=== PATIENT | female | born 1940 | race American Indian/Alaskan Native ===

== ENCOUNTER 2018-03-05 09:58 | Day surgery (SDC) | payer MEDICARE ==
[2018-02-25 10:01] VITALS: BMI 28.1
[2018-03-05] MEDS ORDERED: Lidocaine 1% Inj (20ml) ONE (12:02)
[2018-03-05] MEDS ORDERED: Etomidate 20 mg/10ml Inj IV ONE (12:02)
[2018-03-05] MEDS ORDERED: Sodium Chloride 0.9% 1,000 ML IV SCH (12:30)
[2018-03-05 13:06] VITALS: O2SAT 99
[2018-03-05 17:05] VITALS: BP 138/78; PULSE 67; RESP 16; TEMP 98.4
== END 2018-03-05 14:33 | disposition home or self-care (01) ==
LOC: ENDO 09:58 → EDSEX 09:58 → MERGE 09:58 → ENDO 14:33
PROVIDERS: ATTEND Internal Medicine Gastroenterology
DX: K25.9 Gastric ulcer, unspecified as acute or chronic, without hemorrhage or perforation (principal); K29.50 Unspecified chronic gastritis without bleeding; K31.9 Disease of stomach and duodenum, unspecified; K44.9 Diaphragmatic hernia without obstruction or gangrene; E11.9 Type 2 diabetes mellitus without complications; I10 Essential (primary) hypertension
CPT/HCPCS: 43239; 88305; 88342; J7040 ×2

== ENCOUNTER 2019-02-13 10:33 | Inpatient (IN) | payer MEDICARE, OTHER ==
--- NOTE | 2019-02-13 10:56 | ED PDOC ---
Arrival/HPI - General Chief Complaint: Shortness Of Breath Time Seen by Provider: 02/13/19 10:38 - History of Present Illness Narrative History of Present Illness (Text): 02/13/19 10:55 Patient is a 78 y/o F, followed by Dr. Serrato, presenting with SOB since January 28. She saw her PMD who thought it was secondary to anemia. CT abd/pelvis on 05/14/18 was negative and endoscopy from 03/05/18 showed hiatal hernia, erosive gastropathy and h.pylori negative as performed by Ankit Candelaria. She reports no improvement of symptoms so she presented to ED today. Denies rectal bleeding, vaginal bleeding. Denies chest pain. 02/13/19 11:04 Past Medical History - Infectious Disease Hx of Infectious Diseases: None - Tetanus Immunization Tetanus Immunization: Unknown - Cardiac Hx Pacemaker: No - Neurological Hx Paralysis: No - HEENT Other/Comment: wears glasses - Endocrine/Metabolic Hx Diabetes Mellitus Type 2: Yes - Hematological/Oncological Hx Blood Transfusions: No Hx Blood Transfusion Reaction: No - Musculoskeletal/Rheumatological Hx Musculoskeletal Disorders: Yes - Psychiatric Hx Emotional Abuse: No Hx Physical Abuse: No Hx Substance Use: No - Anesthesia Hx Anesthesia Reactions: No Hx Malignant Hyperthermia: No - Suicidal Assessment Feels Threatened In Home Enviroment: No Family/Social History Family/Social History: No Known Family HX Smoking Status: Never Smoked Hx Alcohol Use: No Hx Substance Use: No Allergies/Home Meds Allergies/Adverse Reactions: Allergies No Known Allergies Allergy (Verified 02/13/19 10:37) Home Medications: Home Meds Medication Instructions Recorded Confirmed Pantoprazole [Protonix] 40 mg PO QAM 10/26/15 02/13/19 Telmisartan/Hydrochlorothiazid 1 tab PO QAM 10/26/15 02/13/19 [Telmisartan-Hydrochlorothiazide 12.5 mg-80 mg] Aspirin [Aspirin EC] 81 mg PO DAILY 04/18/16 02/13/19 Alprazolam [Xanax] 0.5 mg PO QID 10/19/16 02/13/19 Acetaminophen [Tylenol Extra 1 tab PO PRN PRN 02/25/18 02/13/19 Strength] Cholecalciferol (Vitamin D3) 5,000 unit PO DAILY 02/25/18 02/13/19 [Vitamin D3] Ferrous Sulfate [Feosol] 325 mg PO DAILY 02/25/18 02/13/19 Lubiprostone [Amitiza] 24 mcg PO DAILY 02/25/18 02/13/19 Propylene Glycol/Peg 400/Pf 1 drop OU TID 02/25/18 02/13/19 [Systane 0.3-0.4% Eye Drops] Rosuvastatin Calcium [Crestor] 5 mg PO DAILY 02/25/18 02/13/19 SITagliptin [Januvia] 75 mg PO DAILY 02/25/18 02/13/19 Travoprost [Travatan Z] 1 drop OU TID 02/25/18 02/13/19 Review of Systems - Review of Systems Constitutional: Fatigue Eyes: absent: Vision Changes ENT: absent: Hearing Changes Respiratory: SOB. absent: Cough, Sputum, Wheezing Cardiovascular: AHN. absent: Chest Pain, Palpitations, Edema, Calf Pain, Syncope Gastrointestinal: Abdominal Pain (chronic epigastric pain). absent: Constipation, Diarrhea, Nausea, Vomiting, Hematochezia, Hematemesis Genitourinary Female: absent: Hematuria Skin: absent: Rash, Pruritis Neurological: absent: Headache, Dizziness, Focal Weakness, Gait Changes, Speech Changes Physical Exam Vital Signs Temp Pulse Resp BP Pulse Ox 02/13/19 10:43 97.8 F 101 H 20 156/90 H 100 Temperature: Afebrile Blood Pressure: Hypertensive Pulse: Tachycardic Respiratory Rate: Normal Appearance: Positive for: Well-Appearing, Non-Toxic, Comfortable Pain Distress: None Mental Status: Positive for: Alert and Oriented X 3 - Systems Exam Head: Present: Atraumatic, Normocephalic Pupils: Present: PERRL Extroacular Muscles: Present: EOMI Conjunctiva: Present: Normal Mouth: Present: Moist Mucous Membranes Neck: Present: Normal Range of Motion Respiratory/Chest: Present: Clear to Auscultation, Good Air Exchange. No: Respiratory Distress, Accessory Muscle Use Cardiovascular: Present: Regular Rate and Rhythm, Normal S1, S2. No: Murmurs Abdomen: No: Tenderness, Distention Upper Extremity: Present: Normal Inspection Lower Extremity: Present: Normal Inspection. No: Edema, CALF TENDERNESS Neurological: Present: GCS=15, CN II-XII Intact Psychiatric: Present: Alert, Oriented x 3 Medical Decision Making ED Course and Treatment: 02/13/19 11:04 Patient is presenting with fatigue and SOB. EKG shows NSR at 100bpm with LVH. No acute ST changes. 02/13/19 11:40 Dr. Serrato at bedside. Accepts patient for admission. Reports that she has referrred patient to GI and hematology and needs admission for further evaluation and likely cardiac evaluation for chronic SOB and fatigue and weight loss 02/13/19 12:43 Chest cxay No active pulmonary disease. No significant interval change compared to the prior examination(s). - RAD Interpretation Radiology Orders: 02/13/19 10:51 CHEST PORTABLE [RAD] Stat Disposition/Present on Arrival - Present on Arrival Any Indicators Present on Arrival: No History of DVT/PE: No History of Uncontrolled Diabetes: Yes Urinary Catheter: No History of Decub. Ulcer: No History Surgical Site Infection Following: None - Disposition Have Diagnosis and Disposition been Completed?: Yes Diagnosis: Hypokalemia, Shortness of breath, Fatigue, Anemia Disposition: HOSPITALIZED Disposition Time: 11:54 Patient Plan: Admission Patient Problems: Current Active Problems Problem Status Onset Hypokalemia Acute Shortness of breath Acute Fatigue Acute Condition: FAIR
[2019-02-13 11:27] LABS: BASO # 0.02 K/mm3 (0.0-2.0); BASO % 0.4 % (0.0-3.0); EOS # 0.1 (0.0-0.7); EOS % 1.1 % (1.5-5.0); LYMPH # 0.7 (1.2-3.4); LYMPH % 15.4 % (22.0-35.0); MEAN CELL VOLUME 93.2 fl (80.0-105.0); MEAN CORPUSCULAR HEMOGLOBIN 29.8 pg (25.0-35.0); MEAN PLATELET VOLUME 8.5 fl (7.0-11.0); MONO # 0.2 (0.1-0.6); MONO % 5.2 % (1.0-6.0); RBC 3.69 10^6/uL (3.5-6.1); RED CELL DISTRIBUTION WIDTH 13.3 % (11.5-14.5); WHITE BLOOD COUNT 4.6 10^3/uL (4.5-11.0)
[2019-02-13 11:35] LABS: INR 1.25; PARTIAL THROMBOPLASTIN TIME 28.4 Seconds (26.9-38.3); PROTHROMBIN TIME 14.1 SECONDS (9.4-12.5)
[2019-02-13 11:37] LABS: ALB/GLOB RATIO 1.3 (1.1-1.8); ALBUMIN 4.3 g/dL (3.0-4.8); ALT/SGPT 9 U/L (7-56); AST/SGOT 24 U/L (14-36); BLOOD UREA NITROGEN 18 mg/dL (7-21); CALCIUM 9.5 mg/dL (8.4-10.5); GFR NON-AFRICAN AMERICAN 44
[2019-02-13 11:48] LABS: TROPONIN I < 0.01 ng/mL
[2019-02-13] MEDS ORDERED: Potassium Chloride 20 mEq ER Tab PO STA (11:56)
--- NOTE | 2019-02-13 12:42 | RAD ---
Date of service: 02/13/2019 HISTORY: Shortness of breath. COMPARISON: 09/30/2013. FINDINGS: LUNGS: No active pulmonary disease. PLEURA: No significant pleural effusion identified, no pneumothorax apparent. CARDIOVASCULAR: No atherosclerotic calcification present Normal. OSSEOUS STRUCTURES: No significant abnormalities. VISUALIZED UPPER ABDOMEN: Normal. OTHER FINDINGS: None. IMPRESSION: No active pulmonary disease. No significant interval change compared to the prior examination(s). Concordant results with the preliminary interpretation rendered by the emergency department physician procedure.
[2019-02-13] MEDS ORDERED: Barium Sulfate Susp 2.1% w/v, 2.0% w/w 450 mL Bottle PO ONE (12:49)
[2019-02-13] MEDS ORDERED: Iohexol 240 (50 ml) ONE (12:51)
[2019-02-13] MEDS ORDERED: Megestrol Acetate 40 mg/ml Cup PO SCH (13:15)
[2019-02-13] MEDS ORDERED: Iohexol 350 MG/100 ML VIAL ONE (13:35)
--- NOTE | 2019-02-13 14:54 | HP ---
DATE OF EXAM: 02/13/2019 HISTORY OF PRESENT ILLNESS: The patient is 78 years old black female who came to emergency room because of increasing shortness of breath, decreased appetite, unexplained weight loss. She states she feels cold all the time. She has initial workup done in office. She was only found to be little borderline anemic with hemoglobin of 10.4. Her last stress test was done 3 years ago. Denies any chest pain; however she complains of shortness of breath. She does not have any fever or chills. No history of nausea or vomiting; however, she has poor appetite and she pushed herself to eat. PAST MEDICAL HISTORY: Significant for: 1. Non-insulin dependent diabetes. 2. Hypertension. 3. Anxiety disorder. 4. She also has degenerative disc disease, but not on any narcotics. She has endoscopy done in 02/2018, and she was found to have erosive gastropathy and hiatal hernia. ALLERGIES: SHE IS NOT ALLERGIC TO ANY MEDICATION. MEDICATIONS AT HOME 1. She is on Periactin. 2. She is on Travatan. 3. Telmisartan 80 mg daily. 4. Januvia 75 mg daily. 5. Crestor 5 mg daily. 6. Protonix 40 mg daily. 7. Amitiza 24 mcg daily. 8. Ferrous sulfate 325 daily. 9. Aspirin 81 mg daily. 10. Xanax 0.5 q.i.d. SOCIAL HISTORY: She is , lives with her . Denies smoking or drinking. PHYSICAL EXAMINATION GENERAL: She looks weak. She looks frail. She has definitely lost weight. VITAL SIGNS: She is afebrile. Pulse 101, respirations 20, and blood pressure 156/90. LUNGS: Bilateral fair airflow. No rhonchi or crackles. HEART: S1 and S2, audible. ABDOMEN: Soft and nontender. No rebound. No guarding. NEUROLOGIC: The patient is awake and alert, able to communicate. LABORATORY DATA: She has CT of the abdomen and pelvis done that seems to be unremarkable. MRI of the brain shows only neurodegenerative disease. She had PET scan done in 2017 that was also unremarkable. ASSESSMENT 1. Exertional dyspnea. 2. Weight loss. 3. Failure to thrive. 4. History of hypertension. 5. Non-insulin dependent diabetes. PLAN: We will monitor her cardiac status. I will order echocardiogram, Dr. Zavala for consult, Dr. Valentin for consult. I will order for CT scan of the abdomen and pelvis and chest, and we will resume her medication. We will follow up her blood sugar. Emily Serrato MD
[2019-02-13] MEDS ORDERED: Enoxaparin 80 mg Syringe SC STA (16:02)
--- NOTE | 2019-02-13 16:11 | CT ---
Date of service: 02/13/2019 PROCEDURE: CT Chest, Abdomen and Pelvis with intravenous contrast HISTORY: SOB/WT LOSS COMPARISON: 05/14/2018. CT abdomen and pelvis. TECHNIQUE: IV dose administered: 100 cc Omnipaque 350 Radiation dose: Total exam DLP = 614.58 mGy-cm. This CT exam was performed using one or more of the following dose reduction techniques: Automated exposure control, adjustment of the mA and/or kV according to patient size, and/or use of iterative reconstruction technique. FINDINGS: CT CHEST WITH CONTRAST: LUNGS: Clear. No nodule, mass or consolidation. MEDIASTINUM: Central pulmonary embolism on the right. Disease seen in the distal right main pulmonary artery. More peripheral disease in the left lower lobe pulmonary artery extending into the segmental branches identified. No CT criteria of heart strain. Unremarkable. Normal caliber aorta and pulmonary arterial trunk. No aortic dissection. Normal size heart. LYMPH NODES: Unremarkable. PLEURA: Unremarkable. No pneumothorax. No pleural fluid. BONES: Unremarkable. OTHER FINDINGS: None. CT ABDOMEN AND PELVIS: LIVER: Hepatic steatosis. No focal masses. No intrahepatic bile duct dilatation or perihepatic ascites. GALLBLADDER AND BILE DUCTS: Status post cholecystectomy. No abnormality is seen in the gallbladder fossa. PANCREAS: Unremarkable. No gross lesion or ductal dilatation. SPLEEN: Unremarkable. ADRENALS: Unremarkable. No mass. KIDNEYS AND URETERS: Unremarkable. No hydronephrosis. No solid mass. VASCULATURE: No aortic atherosclerotic calcification or mural plaque present. Unremarkable. No aortic aneurysm. BOWEL: Constipation without fecal impaction or obstruction. Diverticulosis without an acute inflammatory component or other associated pathologic process. APPENDIX: Normal appendix. PERITONEUM: Unremarkable. No free fluid. No free air. LYMPH NODES: Unremarkable. No enlarged lymph nodes. BLADDER: Unremarkable. REPRODUCTIVE: Unremarkable. BONES: No acute fracture. OTHER FINDINGS: None. IMPRESSION: Proximal pulmonary embolism bilaterally. This includes distal right main pulmonary artery. Considerable thrombus noted at the origin of the left lower lobe pulmonary artery. Additional benign and/or incidental findings described above. Communication of critical results: I discussed the findings directly with the attending physician in the emergency department at 15:59.
[2019-02-13 16:23] VITALS: BMI 26.4
--- NOTE | 2019-02-13 17:15 | CARD ---
APPROVED REPORT Date of service: 02/13/2019 EKG Measurement Heart [id number] <Conclusion> Sinus rhythm with fusion complexes Minimal voltage criteria for LVH, may be normal variant Borderline ECG
[2019-02-13] MEDS ORDERED: Pneumococcal 23-Valent Vaccine IM ONE (19:19)
[2019-02-13] MEDS: Insulin Lispro (humaLOG) MEDIUM Coverage SC SCH ×2 (19:29→22:50)
[2019-02-13] MEDS: Levalbuterol 1.25 MG/3 ML Inhal Soln UD IH SCH ×2 (20:00→20:26)
[2019-02-14] MEDS: Levalbuterol 1.25 MG/3 ML Inhal Soln UD IH SCH ×4 (01:58→19:35)
--- NOTE | 2019-02-14 08:33 | CP.PCM.PN ---
Subjective - Date & Time of Evaluation Date of Evaluation: 02/14/19 Time of Evaluation: 08:29 - Subjective Subjective: It was requested to co-sign jai ma order. Patient was seen at bed side. Has no complaints. Pertinent medical record was reviewed. This 78year old male was admitted Has PMH of increasing sob, decreasing appetite, unexplained weight loss. Has PMH of HTN, anxiety, NIDDM, DJD, erosive gastropathy, hernia. Objective - Vital Signs/Intake and Output Vital Signs (last 24 hours): Temp Pulse Resp BP Pulse Ox 98.6 F 74 19 139/75 99 02/14/19 05:51 02/14/19 05:51 02/14/19 05:51 02/14/19 05:51 02/14/19 05:51 Intake and Output: 02/14/19 02/14/19 06:59 18:59 Intake Total 240 Balance 240 - Medications Medications: Current Medications Alprazolam (Xanax) 0.25 mg PO QID PRN; Protocol PRN Reason: Anxiety Last Admin: 02/13/19 20:26 Dose: 0.25 mg Aspirin (Ecotrin) 81 mg PO DAILY [facility] Enoxaparin Sodium (Lovenox) 70 mg SC BID [facility]; Protocol Insulin Human Lispro (Humalog Med) 0 units SC ACHS [facility]; Protocol Last Admin: 02/13/19 22:50 Dose: Not Given Levalbuterol HCl (Xopenex) 1.25 mg IH [id number] [facility] Last Admin: 02/14/19 07:34 Dose: 1.25 mg Travoprost [Travatan Z] 1 Drop (Home Med ) 1 drop OU TID [facility] Pantoprazole Sodium (Protonix Ec Tab) 40 mg PO QAM [facility] Sitagliptin Phosphate (Januvia) 25 mg PO DAILY [facility] - Labs Labs: 02/13/19 10:50 02/13/19 10:50 PT 14.1 SECONDS (9.4-12.5) H 02/13/19 10:50 INR 1.25 02/13/19 10:50 APTT 28.4 Seconds (26.9-38.3) 02/13/19 10:50 Assessment and Plan - Assessment and Plan (Free Text) Assessment: Hypokalemia. Borderline anemia. HTN. Anxiety. NIDDM. DJD Erosive gastropathy. Hernia. Plan: Tylenol 650 mg PO X 1. Benadryl 25 mg PO x 1. Continue present management.
[2019-02-14] MEDS: Insulin Lispro (humaLOG) MEDIUM Coverage SC SCH ×4 (09:54→22:20)
[2019-02-14] MEDS: Pantoprazole 40 mg EC Tab PO SCH (10:13)
[2019-02-14] MEDS: Enoxaparin 80 mg Syringe SC SCH ×3 (10:13→19:47)
[2019-02-14] MEDS: TRAVOPROST OU SCH ×3 (10:14→19:41)
--- NOTE | 2019-02-14 12:23 | US ---
HISTORY: Leg pain and swelling. Evaluate for DVT PHYSICIAN(S): Elfego Chanel MD. TECHNIQUE: Duplex sonography and color-flow Doppler with graded compression were used to evaluate the deep venous systems of both lower extremities. FINDINGS: Acute on chronic DVT is noted in the right femoral vein. The right popliteal vein is partially recannulized. The right common femoral vein is patent and compressible. Primarily chronic occlusive changes are noted throughout the left femoral vein. The left popliteal vein and left common femoral vein are patent and compressible IMPRESSION: Acute on chronic deep VT in the right femoral vein and right popliteal Primarily chronic changes throughout the left femoral vein
--- NOTE | 2019-02-14 13:01 | CON ---
DATE OF CONSULTATION: 02/14/2019 REQUESTING PHYSICIAN: Dr. Serrato. REASON FOR CONSULTATION: Dyspnea. HISTORY: This is a 78-year-old woman, known to us from outpatient followup, who presented to the emergency room with worsening dyspnea for the past several days. She also states that her appetite has been reduced, and she has had weight loss issues for a number of months. Workup thus far has been unremarkable. As part of the workup, the CT of the chest, abdomen, and pelvis was performed, and she was found to have evidence of pulmonary emboli. She has been placed on Lovenox. She denies any prolonged immobilization. Her last long car trip was in September when she traveled to [place]. She states that she is fairly active at home. She denies any chest pain. Stress test several years ago was unremarkable. She does have a history of hypertension and diabetes. PAST MEDICAL HISTORY: Past medical history is notable for the problems mentioned above. She does have some lumbar disk disease as well as a history of anxiety and mild chronic anemia. MEDICATIONS: Her current medications include Ecotrin, Januvia, Lovenox, Protonix, Travatan eye drops, Xanax, and Xopenex. ALLERGIES: NONE. SOCIAL HISTORY: She does not smoke or drink. She is and lives at home with her . She states that she is fairly active. FAMILY HISTORY: Both parents are from age-related illnesses. No family history of premature heart disease. REVIEW OF SYSTEMS: A 12-point review of systems is notable for some intermittent joint pain. She denies any nausea or vomiting. Review of systems is otherwise unremarkable. PHYSICAL EXAMINATION: GENERAL: She is an elderly woman, who appears comfortable at rest. VITAL SIGNS: Her blood pressure is 140/76 with a pulse of 74 and sinus, respirations are 14. She is afebrile. HEENT: Normocephalic, atraumatic. NECK: Supple. No JVD noted. CHEST: A few scattered rhonchi heard. No rales noted. HEART: PMI displaced laterally with soft systolic murmur at the lower left sternal border. ABDOMEN: Soft, nontender with normoactive bowel sounds. EXTREMITIES: No clubbing, cyanosis, or edema. SKIN: Warm and dry. PSYCHIATRIC: Normal mood and affect. NEUROLOGIC: Alert and oriented x3. No gross motor or sensory deficits notable. DIAGNOSTIC DATA: White count 4.6, hemoglobin and hematocrit are 11 and 34.4 with a platelet count of 165,000. PT/PTT of 14.1 and 28.4, potassium 3.4, and this has been replaced. BUN and creatinine are 18 and 1.2, glucose is 133. Troponin is negative. Chest x-ray reveals normal cardiac silhouette with clear lung garcia. Electrocardiogram reveals sinus rhythm with voltage criteria for LVH, nonspecific ST-T abnormalities. CT of the chest, abdomen, and pelvis is notable for bilateral proximal pulmonary emboli. IMPRESSION: 1. Bilateral pulmonary emboli, source and etiology uncertain. Given her weight loss and evidence of hypercoagulability, a workup for occult malignancy should be considered. Anticoagulant therapy should continue as well. 2. Rest of the problems as noted. RECOMMENDATIONS: 1. An echocardiogram will be obtained to evaluate her right heart function and screen for evidence of acute pulmonary hypertension. 2. Lower extremity venous duplex scans are advised. Hypercoagulable workup has been ordered. Thank you for this consultation. We will be happy to follow along through hospital course as needed and make further recommendations as appropriate. Niranjan Zavala MD MTDD
--- NOTE | 2019-02-14 13:54 | CARD ---
APPROVED REPORT Date of service: 02/14/2019 EXAM: Two-dimensional and M-mode echocardiogram with Doppler and color Doppler. INDICATION Dyspnea 2D DIMENSIONS Left Atrium (2D)4.0 (1.6-4.0cm)IVSd1.0 (0.7-1.1cm) LVDd4.2 (3.9-5.9cm)PWd1.0 (0.7-1.1cm) LVDs2.8 (2.5-4.0cm)FS (%) 33.0 % LVEF (%)61.9 (>50%) M-Mode DIMENSIONS Aortic Root3.10 (2.2-3.7cm)Aortic Cusp Exc.1.60 (1.5-2.0cm) Aortic Valve AoV Peak Illexxty672.0cm/Dot Peak GR.10mmHg Mitral Valve MV E Juxhjpur26.2cm/sMV A Oapfjhgc949.0cm/sE/A ratio0.6 TDI Lateral E' Peak V11.90cm/sMedial E' Peak V5.75cm/sE/Lateral E'5.1 E/Medial E'10.6 Pulmonary Valve PV Peak Ylbkvmvl73.1cm/sPV Peak Grad.2mmHg Tricuspid Valve TR Peak [id number]/sRAP [id number] Peak Gr.60mmHg [id number] LEFT VENTRICLE The left ventricle is normal size. There is normal left ventricular wall thickness. The left ventricular function is normal. The left ventricular ejection fraction is within the normal range. There is normal LV segmental wall motion. RIGHT VENTRICLE The right ventricle is normal size. The right ventricular systolic function is normal. ATRIA The left atrium is mildly dilated. The right atrium is mildly dilated. The interatrial septum bows toward left atrium consistent with elevated right atrial pressure. AORTIC VALVE The aortic valve is normal in structure. No aortic regurgitation is present. There is no aortic valvular stenosis. MITRAL VALVE The mitral valve is mildly thickened. Mitral regurgitation is mild. TRICUSPID VALVE The tricuspid valve is normal in structure. There is severe tricuspid regurgitation. There is moderate to severe pulmonary hypertension. PULMONIC VALVE The pulmonary valve is normal in structure. There is mild pulmonic valvular regurgitation. GREAT VESSELS The aortic root is normal in size. The IVC is normal in size and collapses >50% with inspiration. PERICARDIAL EFFUSION There is no pleural effusion. There is no pericardial effusion. <Conclusion> Mild biatrial enlargement. Normal LV size and systolic function. Mild mitral regurgitation. Severe tricuspid regurgitation. Mild pulmonic insufficiency. Moderate to severe pulmonary hypertension.
--- NOTE | 2019-02-14 14:13 | CP.PCM.CON ---
<Lisseth Allan - Last Filed: 02/14/19 14:02> History of Present Illness - History of Present Illness History of Present Illness: Gastroenterology Fellow/PGY6 Consult Note 78 year old female with PMH of PUD 2016, Diabetes, HTN, DJD, and Anxiety presenting with shortness of breath. Patient describes progressive shortness of breath with exertion since 01/23/19. She noticed symptoms worsened to shortness of breath while at rest in the last week leading to PCP evaluation and presentation to ER. Associated loss of appetite and unintentional weight loss which is chronic over the last five years for which patient has been evaluated for without confirmation of underlying pathology with negative prior CT pancreas 02/2017 and PET scan 09/2017 . Denies nausea, vomiting, heartburn, acid reflux, abdominal pain, diarrhea, constipation, melena, hematochezia, recent travel, or sick contacts. Prior EGD 03/2016 showed two superficial prepyloric antral ulcers with confirmed healing on EGD 02/2018 showing erosive H. pylori negative gastritis. Prior colonoscopy 10/2015 showed diverticulosis and internal hemorrhoids with good bowel prep. Family History- denies stomach cancer, colon cancer Social History- denies tobacco, alcohol, illicit drug use Surgical History- cholecystectomy Review of Systems - Review of Systems Review of Systems: 12-point review of systems negative except for as above Past Patient History - Infectious Disease Hx of Infectious Diseases: None - Tetanus Immunizations Tetanus Immunization: Unknown - Past Social History Smoking Status: Never Smoked - CARDIAC Hx Cardiac Disorders: Yes (CAD, Mild [place] 2008) Hx Hypertension: Yes - PULMONARY Hx Respiratory Disorders: No - NEUROLOGICAL Hx Neurological Disorder: Yes (memory loss) - HEENT Hx HEENT Problems: Yes Hx Cataracts: Yes (r eye) Other/Comment: wears glasses - RENAL Hx Chronic Kidney Disease: No - ENDOCRINE/METABOLIC Hx Diabetes Mellitus Type 2: Yes - HEMATOLOGICAL/ONCOLOGICAL Hx Blood Disorders: Yes Hx Anemia: Yes - INTEGUMENTARY Hx Dermatological Problems: No - MUSCULOSKELETAL/RHEUMATOLOGICAL Hx Arthritis: Yes - GASTROINTESTINAL Hx Gastrointestinal Disorders: Yes Hx Gastroesophageal Reflux: Yes Other/Comment: hiatal hernia, gastropharesis - GENITOURINARY/GYNECOLOGICAL Hx Genitourinary Disorders: Yes (mammo 07/15/18 neg) Hx Incontinence: Yes (dribbling) - PSYCHIATRIC Hx Substance Use: No - SURGICAL HISTORY Hx Surgeries: Yes Hx Coronary Stent: Yes - ANESTHESIA Hx Anesthesia Reactions: No Hx Malignant Hyperthermia: No Meds Allergies/Adverse Reactions: Allergies Allergy/AdvReac Type Severity Reaction Status Date / Time No Known Allergies Allergy Verified 02/13/19 10:37 - Medications Medications: Current Medications Alprazolam (Xanax) 0.25 mg PO QID PRN; Protocol PRN Reason: Anxiety Last Admin: 02/13/19 20:26 Dose: 0.25 mg Aspirin (Ecotrin) 81 mg PO DAILY [facility] Last Admin: 02/14/19 10:13 Dose: 81 mg Cyproheptadine HCl (Periactin) 2 mg PO TID [facility] Enoxaparin Sodium (Lovenox) 70 mg SC BID [facility]; Protocol Last Admin: 02/14/19 10:13 Dose: 70 mg Insulin Human Lispro (Humalog Med) 0 units SC ACHS [facility]; Protocol Last Admin: 02/14/19 12:34 Dose: Not Given Levalbuterol HCl (Xopenex) 1.25 mg IH [id number] [facility] Last Admin: 02/14/19 12:59 Dose: Not Given Mirtazapine (Remeron) 15 mg PO HS [facility] Travoprost [Travatan Z] 1 Drop (Home Med ) 1 drop OU TID [facility] Last Admin: 02/14/19 10:14 Dose: Not Given Pantoprazole Sodium (Protonix Ec Tab) 40 mg PO QAM [facility] Last Admin: 02/14/19 10:13 Dose: 40 mg Paroxetine HCl (Paxil) 5 mg PO DAILY [facility] Physical Exam - Constitutional Appears: Non-toxic, No Acute Distress - Head Exam Head Exam: ATRAUMATIC, NORMOCEPHALIC - Eye Exam Eye Exam: EOMI, PERRL. absent: Scleral icterus Pupil Exam: PERRL. absent: Miosis, Mydriatic - ENT Exam ENT Exam: Mucous Membranes Moist, Normal Oropharynx - Neck Exam Neck exam: Positive for: Full Rom, Normal Inspection - Respiratory Exam Respiratory Exam: Clear to Auscultation Bilateral. absent: Rales, Rhonchi, Wheezes - Cardiovascular Exam Cardiovascular Exam: RRR, +S1, +S2. absent: Gallop, Rubs - GI/Abdominal Exam GI & Abdominal Exam: Normal Bowel Sounds, Soft. absent: Distended, Firm, Guarding, Organomegaly, Rebound, Rigid, Tenderness - Extremities Exam Extremities exam: Positive for: normal inspection - Neurological Exam Neurological exam: Alert - Psychiatric Exam Psychiatric exam: Normal Affect, Normal Mood - Skin Skin Exam: Dry, Intact, Normal Color, Warm Results - Vital Signs Recent Vital Signs: Last Vital Signs Temp 98.6 F 02/14/19 05:51 Pulse 74 02/14/19 05:51 Resp 19 02/14/19 05:51 BP 139/75 02/14/19 05:51 Pulse Ox 99 02/14/19 11:00 - Labs Result Diagrams: 02/13/19 10:50 02/13/19 10:50 Labs: Laboratory Results - last 24 hr 02/13/19 02/14/19 19:28 06:30 POC Glucose (mg/dL) 91 Homocysteine 2.1 L Assessment & Plan - Assessment and Plan (Free Text) Assessment: 78 year old female with PMH of PUD 2015, Diabetes, HTN, DJD, and Anxiety presenting with shortness of breath. Patient describes progressive shortness of breath since 01/23/19. GI consultation for weight loss. Prior EGD 03/2016 showed two superficial prepyloric antral ulcers with confirmed healing on EGD 02/2018 showing erosive H. pylori negative gastritis. Prior colonoscopy 10/2015 showed diverticulosis and internal hemorrhoids with good bowel prep. Plan: -confirmed pulmonary embolism -on full dose lovenox -CT C/A/P showed no concern for mass lesion or pathology -consider psychogenic source as potential cause of food aversion with weight loss -consider pyschiatry evaluation for possible depression and early dementia as source of loss of appetite -prior PET 09/2017- no underlying pathology -prior CT pancreas 02/2017 -will follow clinical course <Ankit Valentin V - Last Filed: 02/14/19 21:39> Meds - Medications Medications: Current Medications Alprazolam (Xanax) 0.25 mg PO QID PRN; Protocol PRN Reason: Anxiety Last Admin: 02/13/19 20:26 Dose: 0.25 mg Aspirin (Ecotrin) 81 mg PO DAILY [facility] Last Admin: 02/14/19 10:13 Dose: 81 mg Cyproheptadine HCl (Periactin) 2 mg PO TID [facility] Last Admin: 02/14/19 19:45 Dose: 2 mg Enoxaparin Sodium (Lovenox) 70 mg SC BID [facility]; Protocol Last Admin: 02/14/19 19:47 Dose: Not Given Insulin Human Lispro (Humalog Med) 0 units SC ACHS [facility]; Protocol Last Admin: 02/14/19 19:46 Dose: Not Given Levalbuterol HCl (Xopenex) 1.25 mg IH [id number] [facility] Last Admin: 02/14/19 19:35 Dose: 1.25 mg Mirtazapine (Remeron) 15 mg PO HS [facility] Travoprost [Travatan Z] 1 Drop (Home Med ) 1 drop OU TID [facility] Last Admin: 02/14/19 19:41 Dose: Not Given Pantoprazole Sodium (Protonix Ec Tab) 40 mg PO QAM [facility] Last Admin: 02/14/19 10:13 Dose: 40 mg Paroxetine HCl (Paxil) 5 mg PO DAILY [facility] Last Admin: 02/14/19 15:02 Dose: 5 mg Warfarin Sodium (Coumadin) 10 mg PO 1800 [facility]; Protocol Last Admin: 02/14/19 19:45 Dose: 10 mg Results - Vital Signs Recent Vital Signs: Last Vital Signs Temp 98.6 F 02/14/19 05:51 Pulse 78 02/14/19 18:00 Resp 19 02/14/19 05:51 BP 139/75 02/14/19 05:51 Pulse Ox 99 02/14/19 11:00 - Labs Result Diagrams: 02/13/19 10:50 02/13/19 10:50 Labs: Laboratory Results - last 24 hr 02/14/19 02/14/19 06:00 06:30 Homocysteine 2.1 L Rheumatoid Arth Interp Negative SOUMYA 6 Profile Negative Attending/Attestation - Attestation I have personally seen and examined this patient.: Yes I have fully participated in the care of the patient.: Yes I have reviewed all pertinent clinical information: Yes Notes (Text): This patient was seen and evaluated here earlier Along with the GI fellow. This is an addendum to the consultation report dictated by the fellow. Discussed with the Dr. Fenton earlier. Previous work-up was extensive to evaluate the patient's weight loss and p.o. intake. At one time patient had a significant weight loss but patient gradually improved with weight when he started eating. Multiple work-up done including the CAT scans EGDs and colonoscopies. Patient did even have a PET scan done before. Patient has a history of dementia and a depression. Part of the p.o. intake low could be due to psychogenic rather than GI etiology. However patient does have a history of gastric erosions history of NSAID use in the past history of intestinal metaplasia last EGD was close to year ago. Patient is now admitted with the PE. Continue the anticoagulation endoscopy evaluation at this present time carries a high risk. Would empirically continue the PPI. 02/14/19 21:35
--- NOTE | 2019-02-14 14:17 | PN ---
DATE: 02/14/2019 SUBJECTIVE: The patient is 78 years old, seen and examined. She states she feels little better, less shortness of breath, still complains of decreased appetite. No nausea or vomiting. No diarrhea. PHYSICAL EXAMINATION VITAL SIGNS: She is afebrile. Pulse 74, respirations 19 and blood pressure 139/75. LUNGS: Bilateral fair airflow. No rhonchi or crackles. HEART: S1 and S2, audible. ABDOMEN: Soft and nontender. No rebound. No guarding. NEUROLOGIC: The patient is awake and alert, able to communicate, ambulatory. LABORATORY DATA: Homocysteine is 2.1. She has CT of the abdomen and pelvis done. CT scan shows bilateral pulmonary embolism. Bilateral leg Doppler is pending. ASSESSMENT 1. Exertional dyspnea, probably secondary to pulmonary embolism. Echocardiogram is pending. 2. History of hypertension. 3. Non-insulin dependent diabetes. 4. History of weight loss, status post endoscopy in 02/2018 in which she was found to have mild chronic gastritis with focal . 5. Anxiety disorder. PLAN: We will keep the patient on Lovenox and we will bridge with Coumadin, start her on Remeron. She is complaining of decreased appetite and add small dose of cyproheptadine. We will monitor on telemetry. Discuss with Dr. Lim. Coagulopathy workup is in progress. Emily Serrato MD
--- NOTE | 2019-02-14 16:27 | HP ---
DATE OF EXAM: 02/14/[address] Serrato. HISTORY OF PRESENT ILLNESS: Ms. Grimes is a 78-year-old female known to me from office. She presented to the ED with increased shortness of breath. CT chest with PE protocol showed bilateral pulmonary embolism in the proximal part of the pulmonary artery. She was started on Lovenox yesterday. She also has a history of weight loss and extreme fatigue for past few years. She was evaluated in past fully to rule out occult malignancy. She had a PET scan done in 2016, which was unremarkable. CAT scan of abdomen and pelvis was done in 03/2018 for evaluation of loss of appetite; it was unremarkable. She had EGD colonoscopy done by Dr. Valentin also for the same reason. CT of abdomen and pelvis done during this admission is unremarkable. No chest pain. Also, has history of diabetes mellitus, controlled with current medication. PAST MEDICAL HISTORY: Weight loss, fatigue, and diabetes mellitus. PAST SURGICAL HISTORY: None. ALLERGIES: NO KNOWN DRUG ALLERGIES. PERSONAL HISTORY: Never smoked. No history of alcohol abuse. FAMILY HISTORY: Noncontributory. HOME MEDICATIONS: Januvia, Crestor, Amitiza, ferrous sulfate, Tylenol, Xanax, hydrochlorothiazide and Protonix. REVIEW OF SYSTEMS: As per HPI. Rest of 12-point review of systems reviewed negative. PHYSICAL EXAMINATION: GENERAL: Comfortable in bed; in no acute distress. VITAL SIGNS: Temperature 97.8, heart rate 100 per minute, respiratory rate 20 per minute, blood pressure 150/80, and pulse ox is 100% on oxygen by nasal cannula. HEENT: Pallor positive. NECK: No lymphadenopathy. CHEST: Air entry present equal bilaterally. No added sounds. CARDIOVASCULAR: S1 and S2 normal. No murmur, rub, or gallop. ABDOMEN: Soft and nontender. No hepatosplenomegaly. EXTREMITIES: No edema. CENTRAL NERVOUS SYSTEM: Alert and oriented x3. No focal, sensory, or motor deficit. LABORATORY DATA: White count 4.6, hemoglobin 11, hematocrit 34.4, and platelet 165. Sodium 142, potassium 3.2, BUN 18, and creatinine 1.2. ASSESSMENT: 1. New onset of pulmonary embolism, unprovoked. 2. Chronic fatigue. 3. Diabetes mellitus type 2. PLAN: 1. Currently on Lovenox 1 mg per kilo b.i.d. We will continue Lovenox with Coumadin; discuss with the patient and the son choice of oral anticoagulation. Coumadin is the safest and easily reversible. She will need lifelong Coumadin because of unprovoked DVT. Thrombophilia workup ordered, results pending. We will start Coumadin 24 hours after starting Lovenox, which will be 10 mg p.o. daily and discussed with Dr. Serrato regarding the anticoagulation management. 2. Borderline B12 deficiency; currently B12 level normal. 3. Chronic fatigue, weight loss. Weight has been stable for past one year. Workup for occult malignancy has been negative, done in 2017 and 2018. 4. GI consultation, Dr. Valentin requested for weight loss. Thank you Dr. Serrato for allowing us to participate in Ms. Grimes's care. Elena Lim MD
[2019-02-15] MEDS: Levalbuterol 1.25 MG/3 ML Inhal Soln UD IH SCH ×4 (02:03→21:11)
[2019-02-15] MEDS: Insulin Lispro (humaLOG) MEDIUM Coverage SC SCH ×4 (08:07→22:05)
[2019-02-15 09:41] LABS: INR 1.2; PROTHROMBIN TIME 13.6 SECONDS (9.4-12.5)
[2019-02-15] MEDS: Enoxaparin 80 mg Syringe SC SCH ×2 (10:11→17:45)
[2019-02-15] MEDS: Pantoprazole 40 mg EC Tab PO SCH (10:13)
[2019-02-15] MEDS: TRAVOPROST OU SCH ×3 (10:13→17:08)
--- NOTE | 2019-02-15 11:06 | CP.PCM.PN ---
<Juana Eisenbergiris - Last Filed: 02/15/19 20:13> Subjective - Date & Time of Evaluation Date of Evaluation: 02/15/19 Time of Evaluation: 09:30 - Subjective Subjective: PGY4 GI fellow progress note Patient was sitting up in bed talking on the phone when seen this morning. She states her breathing is somewhat improved since admission. Appetite is still somewhat poor however what food she is eating and she is tolerating well. Five-point review of systems negative other than stated above Objective - Vital Signs/Intake and Output Vital Signs (last 24 hours): Temp Pulse Resp BP Pulse Ox 98.9 F 65 18 117/75 100 02/15/19 06:00 02/15/19 06:00 02/15/19 06:00 02/15/19 06:00 02/15/19 06:00 Intake and Output: 02/15/19 02/15/19 06:59 18:59 Intake Total 1140 Output Total 600 Balance 540 - Medications Medications: Current Medications Alprazolam (Xanax) 0.25 mg PO QID PRN; Protocol PRN Reason: Anxiety Last Admin: 02/14/19 22:21 Dose: 0.25 mg Aspirin (Ecotrin) 81 mg PO DAILY [facility] Last Admin: 02/15/19 10:13 Dose: 81 mg Cyproheptadine HCl (Periactin) 2 mg PO TID [facility] Last Admin: 02/15/19 10:12 Dose: 2 mg Enoxaparin Sodium (Lovenox) 70 mg SC BID [facility]; Protocol Last Admin: 02/15/19 10:11 Dose: 70 mg Insulin Human Lispro (Humalog Med) 0 units SC [facility]; Protocol Last Admin: 02/15/19 08:07 Dose: Not Given Levalbuterol HCl (Xopenex) 1.25 mg IH [id number] [facility] Last Admin: 02/15/19 07:36 Dose: 1.25 mg Mirtazapine (Remeron) 15 mg PO HS [facility] Last Admin: 02/14/19 22:21 Dose: 15 mg Travoprost [Travatan Z] 1 Drop (Home Med ) 1 drop OU TID [facility] Last Admin: 02/15/19 10:13 Dose: Not Given Pantoprazole Sodium (Protonix Ec Tab) 40 mg PO QAM [facility] Last Admin: 02/15/19 10:13 Dose: 40 mg Paroxetine HCl (Paxil) 5 mg PO DAILY [facility] Last Admin: 02/15/19 10:12 Dose: 5 mg Warfarin Sodium (Coumadin) 10 mg PO 1800 [facility]; Protocol Last Admin: 02/14/19 19:45 Dose: 10 mg - Labs Labs: 02/13/19 10:50 02/13/19 10:50 PT 13.6 SECONDS (9.4-12.5) H 02/15/19 08:30 INR 1.20 02/15/19 08:30 APTT 28.4 Seconds (26.9-38.3) 02/13/19 10:50 - Constitutional Appears: Well, No Acute Distress - Head Exam Head Exam: ATRAUMATIC, NORMAL INSPECTION - Eye Exam Eye Exam: EOMI. absent: Scleral icterus - ENT Exam ENT Exam: Mucous Membranes Moist. absent: Mucous Membranes Dry - Respiratory Exam Respiratory Exam: NORMAL BREATHING PATTERN. absent: Accessory Muscle Use - GI/Abdominal Exam GI & Abdominal Exam: Soft, Normal Bowel Sounds. absent: Bruit, Distended, Firm, Guarding, Rigid, Tenderness, Hypoactive Bowel Sounds, Mass, Pulsatile Mass, Rebound Assessment and Plan - Assessment and Plan (Free Text) Assessment: 78 year old female with PMH of PUD 2016, Diabetes, HTN, DJD, and Anxiety presenting with shortness of breath. Patient describes progressive shortness of breath since 01/23/19. GI consultation for weight loss. Prior EGD 03/2016 showed two superficial prepyloric antral ulcers with confirmed healing on EGD 02/2018 showing erosive H. pylori negative gastritis. Prior colonoscopy 10/2015 showed diverticulosis and internal hemorrhoids with good bowel prep. Prior PET 09/2017- no underlying pathology. Prior CT pancreas 02/2017 Plan: -Pulmonary embolism: lovenox -> warfarin -CT C/A/P showed no concern for mass lesion or pathology -Suspect psychogenic source as potential cause of food aversion with weight loss -Consider psychiatry evaluation for possible depression and early dementia as source of loss of appetite -Will follow clinical course Patient discussed with Dr. Valentin. Please see attestation for further recommendations/changes <Ankit Valentin V - Last Filed: 02/15/19 22:44> Objective - Vital Signs/Intake and Output Vital Signs (last 24 hours): Temp Pulse Resp BP Pulse Ox 98.3 F 84 16 130/77 100 02/15/19 18:00 02/15/19 18:00 02/15/19 18:00 02/15/19 18:00 02/15/19 09:00 Intake and Output: 02/15/19 02/16/19 18:59 06:59 Intake Total 550 Balance 550 - Medications Medications: Current Medications Alprazolam (Xanax) 0.25 mg PO QID PRN; Protocol PRN Reason: Anxiety Last Admin: 02/15/19 21:13 Dose: 0.25 mg Aspirin (Ecotrin) 81 mg PO DAILY [facility] Last Admin: 02/15/19 10:13 Dose: 81 mg Cyproheptadine HCl (Periactin) 2 mg PO TID [facility] Last Admin: 02/15/19 17:46 Dose: 2 mg Enoxaparin Sodium (Lovenox) 70 mg SC BID [facility]; Protocol Last Admin: 02/15/19 17:45 Dose: 70 mg Insulin Human Lispro (Humalog Med) 0 units SC ACHS [facility]; Protocol Last Admin: 02/15/19 22:05 Dose: Not Given Levalbuterol HCl (Xopenex) 1.25 mg IH [id number] [facility] Last Admin: 02/15/19 21:11 Dose: 1.25 mg Mirtazapine (Remeron) 15 mg PO HS [facility] Last Admin: 02/15/19 21:10 Dose: 15 mg Travoprost [Travatan Z] 1 Drop (Home Med ) 1 drop OU TID [facility] Last Admin: 02/15/19 17:08 Dose: Not Given Pantoprazole Sodium (Protonix Ec Tab) 40 mg PO QAM [facility] Last Admin: 02/15/19 10:13 Dose: 40 mg Paroxetine HCl (Paxil) 5 mg PO DAILY [facility] Last Admin: 02/15/19 10:12 Dose: 5 mg Warfarin Sodium (Coumadin) 10 mg PO 1800 [facility]; Protocol Last Admin: 02/15/19 17:45 Dose: 10 mg - Labs Labs: 02/13/19 10:50 02/13/19 10:50 PT 13.6 SECONDS (9.4-12.5) H 02/15/19 08:30 INR 1.20 02/15/19 08:30 APTT 28.4 Seconds (26.9-38.3) 02/13/19 10:50 Attending/Attestation - Attestation I have personally seen and examined this patient.: Yes I have fully participated in the care of the patient.: Yes I have reviewed all pertinent clinical information, including history, physical exam and plan: Yes Notes (Text): This patient was seen and evaluated here earlier. This is an addendum to the GI progress report dictated by the fellow. No complaints of abdominal pain. Patient has been on anticoagulation for PE. History of gastric intestinal metaplasia peptic ulcer disease. Last endoscopy was seen in February 2018. Patient had an extensive work-up done in the past. Her main concern is decreased appetite. History of anemia and depression. Part of the problem may be related to lack of motivation depression contributing to to poor p.o. intake. Thank you very much for allowing us to participate in the care of the patient will continue to closely follow-up her and suggest further recommendations based on the clinical course 02/15/19 22:42
--- NOTE | 2019-02-15 11:16 | PN ---
DATE: 02/15/2019 SUBJECTIVE: The patient is seen lying in bed, on telemetry. She is currently comfortable at present time. She denies any dyspnea at rest. She has had no chest pain. MEDICATIONS: Her current medications include Ecotrin, warfarin, insulin, Lovenox 70 mg b.i.d., Paxil, Protonix, Remeron, Xanax, and Xopenex. OBJECTIVE: GENERAL: She is an elderly woman who appears comfortable at the present time. VITAL SIGNS: Her blood pressure is 130/72 with a pulse of 70 and sinus, respirations of 14. She is afebrile. HEENT: No JVD. CHEST: Few scattered rhonchi heard. HEART: PMI displaced laterally with systolic murmur noted in the lower left sternal border. ABDOMEN: Soft, nontender with normoactive bowel sounds. EXTREMITIES: No edema. No Homans' sign noted. LABORATORY DATA: The morning blood work pending. DIAGNOSTIC DATA: Echocardiogram was reviewed. This showed evidence of biatrial enlargement, normal LV size and systolic function with mild mitral regurgitation and severe tricuspid regurgitation. Estimated RVSP was 70 mmHg. Lower extremity venous duplex scan showed evidence of acute on chronic DVT of the right femoral vein and right popliteal vein, chronic changes notable in the left femoral vein. IMPRESSION: 1. Bilateral pulmonary emboli with evidence of acute on chronic bilateral deep vein thrombosis, exact cause unclear. 2. Severe tricuspid regurgitation with evidence of pulmonary hypertension, likely acute secondary to thrombus burden and pulmonary vasculature. 3. History of weight loss with negative workup in the past. 4. History of hypertension. 5. History of diabetes. RECOMMENDATIONS: Anticoagulant therapy with Lovenox. We will continue through the process of warfarin loading. A target INR of 2 to 3 will be planned. A repeat echocardiogram in 1-2 weeks to follow up her pulmonary hypertension would be advisable as well. Hypercoagulable workup is ongoing. I will continue to follow and make further recommendations as appropriate. Niranjan Zavala MD
--- NOTE | 2019-02-15 13:21 | PN ---
DATE: 02/15/2019 SUBJECTIVE: The patient is 78 years old, came to the emergency room because of increasing shortness of breath, loss of appetite. Upon further enquiring, she does admit feeling a little depressed, has lost some weight. Had workup done for weight loss, was found to have bilateral pulmonary embolism, started on Lovenox being bridged with Coumadin. PHYSICAL EXAMINATION: GENERAL: She states her breathing is better. VITAL SIGNS: She is afebrile, pulse 68, respirations 18, blood pressure 110/71. LUNGS: Bilateral fair airflow. No rhonchi or crackle. HEART: S1, S2 audible. ABDOMEN: Soft, nontender. No rebound. No guarding. NEUROLOGIC: The patient is awake and alert. Able to communicate. EXTREMITIES: Bilateral legs, no edema. LABORATORY DATA: PT 13.6, INR 1.20. Chemistry; blood sugar is 96. ASSESSMENT: 1. Bilateral pulmonary embolism. 2. History of weight loss. 3. Mild gastritis. 4. Iwn-yjniqjo-dlpeckuli diabetes. 5. Right femoral vein and right popliteal vein deep venous thrombosis. 6. History of depression. 7. Chronic anemia. 8. Tricuspid regurgitation. PLAN: We will give the patient 10 mg of Coumadin today. We will continue to give Lovenox. We will followup PT and INR in the a.m. She has been started on some small dose of antidepressant and we will continue telemonitoring for another 24 hours and discharge plan when she is therapeutic. Monitor blood sugar. We will followup . Emily Serrato MD
[2019-02-16] MEDS: Levalbuterol 1.25 MG/3 ML Inhal Soln UD IH SCH ×4 (02:57→20:05)
[2019-02-16 07:27] LABS: INR 1.78; PROTHROMBIN TIME 20.1 SECONDS (9.4-12.5)
[2019-02-16] MEDS: Insulin Lispro (humaLOG) MEDIUM Coverage SC SCH ×3 (08:09→16:47)
--- NOTE | 2019-02-16 10:11 | PN ---
DATE: 02/16/2019 SUBJECTIVE: The patient is seen lying in bed on telemetry. She is currently comfortable at the present time. She has no dyspnea. CURRENT MEDICATIONS: Include warfarin, Ecotrin, insulin coverage, Lovenox 70 mg b.i.d., Paxil, Protonix, Remeron, Xanax, and Xopenex. OBJECTIVE: GENERAL: She is an elderly woman who is comfortable at rest. VITAL SIGNS: Blood pressure is 108/60 with pulse of 70 and sinus, occasional PVCs noted, respirations of 14. She is afebrile. HEENT: No JVD. CHEST: Few scattered rhonchi. HEART: PMI in normal position. A systolic murmur is noted at the left sternal border. ABDOMEN: Soft, obese, nontender with normoactive bowel sounds. EXTREMITIES: No edema. IMPRESSION: 1. Bilateral pulmonary emboli, remains on anticoagulant therapy. 2. Acute on chronic bilateral deep vein thrombosis. 3. Severe tricuspid regurgitation and pulmonary hypertension likely secondary to thrombus burden. 4. Prior weight loss with negative workup for malignancy in the past. 5. History of hypertension and diabetes. RECOMMENDATIONS: Her current medications should continue for now. Coumadin loading has been initiated and target INR of 2-3 is planned. Once her INR is therapeutic, Lovenox can be discontinued. Hypercoagulable workup is pending. With respect to her severe tricuspid regurgitation, evidence of pulmonary hypertension, repeat echocardiogram in several weeks as an outpatient will be planned for followup. We will follow along as needed. Niranjan Zavala MD MTDMariana
[2019-02-16] MEDS: Enoxaparin 80 mg Syringe SC SCH ×2 (10:12→18:00)
[2019-02-16] MEDS: Pantoprazole 40 mg EC Tab PO SCH (10:13)
--- NOTE | 2019-02-16 11:16 | PN ---
DATE: 02/16/2019 SUBJECTIVE: The patient has no complaints of any chest pain. No shortness of breath. No headaches or dizziness. PHYSICAL EXAMINATION: VITAL SIGNS: Temperature is 97.2, pulse of 62, blood pressure 136/75 and respirations 18. GENERAL: The patient is lying in bed, flat, comfortable. HEENT: No oral lesion. Anicteric sclerae. Moist mucosa. NECK: No JVD, adenopathy, or thyromegaly. CARDIOVASCULAR: S1 and S2, regular. No murmurs, rubs, or gallops. LUNGS: Clear to auscultation bilaterally. No wheeze, rales, or rhonchi. ABDOMEN: Bowel sounds are positive, soft, nontender and nondistended. EXTREMITIES: No cyanosis, clubbing or edema. LABORATORY DATA: White count of 4.6 and hemoglobin is 11. Potassium is 3.4 and creatinine is 1.2. ASSESSMENT: 1. Pulmonary embolism. 2. Diabetes type II. 3. Right femoral vein and right popliteal vein deep venous thrombosis. 4. Depression. 5. Chronic anemia. 6. Tricuspid regurgitation. PLAN: The patient is currently on Coumadin for anticoagulation. The patient has an INR that is subtherapeutic at 1.7. This morning, we will continue the patient on Coumadin dosage. The patient has Lovenox for anticoagulation until the INR is therapeutic. She is on Xanax as needed for anxiety. She is receiving Remeron. She is on a heart healthy diet. She is being followed by Dr. Lim. We will repeat the patient's INR tomorrow. Tim Flowers MD
[2019-02-16] MEDS: TRAVOPROST OU SCH ×3 (14:15→18:03)
[2019-02-17] MEDS: Levalbuterol 1.25 MG/3 ML Inhal Soln UD IH SCH ×3 (02:14→13:48)
[2019-02-17] MEDS: Insulin Lispro (humaLOG) MEDIUM Coverage SC SCH ×4 (02:18→16:46)
[2019-02-17 02:38] VITALS: TEMP 98.6
[2019-02-17 06:54] VITALS: O2SAT 97
[2019-02-17 07:11] LABS: INR 2.66; PROTHROMBIN TIME 30.1 SECONDS (9.4-12.5)
[2019-02-17] MEDS: TRAVOPROST OU SCH ×3 (09:50→17:01)
[2019-02-17] MEDS: Pantoprazole 40 mg EC Tab PO SCH (10:16)
--- NOTE | 2019-02-17 10:53 | PN ---
DATE: 02/17/2019 SUBJECTIVE: The patient is seen lying in bed on telemetry. She is comfortable at the present time. She denies any dyspnea. She is being loaded with Coumadin. She remains on Lovenox. CURRENT MEDICATIONS: Include Coumadin, Ecotrin, insulin, Paxil, Protonix, Remeron, Xanax, and Xopenex. OBJECTIVE: GENERAL: She is an elderly woman who appears comfortable at rest. VITAL SIGNS: Blood pressure 146/80 with a pulse of 70 in sinus, PVCs and SVPCs were noted. Respirations are 14. She is afebrile. HEENT: No JVD. CHEST: Few scattered rhonchi. HEART: PMI displaced laterally. A systolic murmur in the left sternal border. ABDOMEN: Soft, nontender with normoactive bowel sounds. EXTREMITIES: No edema. DIAGNOSTIC DATA: Potassium 2.66. IMPRESSION: 1. Bilateral pulmonary emboli, currently loaded with warfarin. 2. Acute on chronic bilateral deep venous thrombosis. 3. Severe tricuspid regurgitation and evidence of pulmonary hypertension likely secondary to pulmonary thrombus burden. 4. Hypertension and diabetes. 5. History of weight loss with negative workup in the past. RECOMMENDATIONS: Her current medications should continue for now. After 24 hours of therapeutic INR, Lovenox can be discontinued and she can discharged home. Full details of hypercoagulable workup remain pending. This can be monitored as an outpatient. A repeat echocardiogram in 2 to 3 weeks will planned as followup of her tricuspid regurgitation and to determine if there is any residual pulmonary hypertension. DVT prophylaxis also should continue. We will happy to see as needed. Niranjan Zavala MD MTDD
[2019-02-17 12:39] VITALS: BP 149/74; PULSE 79; RESP 18
--- NOTE | 2019-02-17 15:21 | CT ---
Date of service: 02/17/2019 PROCEDURE: CT HEAD WITHOUT CONTRAST. HISTORY: persistant headagh COMPARISON: None available. TECHNIQUE: Axial computed tomography images were obtained through the head/brain without intravenous contrast. Radiation dose: Total exam DLP = 966.23 mGy-cm. This CT exam was performed using one or more of the following dose reduction techniques: Automated exposure control, adjustment of the mA and/or kV according to patient size, and/or use of iterative reconstruction technique. FINDINGS: HEMORRHAGE: No intracranial hemorrhage. BRAIN: No mass effect or edema. No atrophy or chronic microvascular ischemic changes. VENTRICLES: Unremarkable. No hydrocephalus. CALVARIUM: Unremarkable. PARANASAL SINUSES: Unremarkable as visualized. No significant inflammatory changes. MASTOID AIR CELLS: Unremarkable as visualized. No inflammatory changes. OTHER FINDINGS: None. IMPRESSION: No acute intracranial findings
--- NOTE | 2019-02-18 05:13 | DS ---
HISTORY OF PRESENT ILLNESS: The patient is a 78-year-old who came to office because of increasing shortness of breath, complain of feeling weak, not eating that well, so the patient was brought in has CT of abdomen and pelvis done shows bilateral pulmonary embolism, has been on Lovenox bridged with the Coumadin. Today, the patient is therapeutic. She states that her shortness of breath is look better. PHYSICAL EXAMINATION: VITAL SIGNS: She is afebrile. Pulse 108, respirations 20 and blood pressure 145/82. LUNGS: Bilateral fair airflow. No rhonchi or crackle. HEART: S1 and S2 audible. ABDOMEN: Soft and nontender. No rebound. No guarding. NEUROLOGIC: The patient is awake and alert, able to communicate. LABORATORY DATA: PT is 30.1, INR 2.66. Blood sugar is 97. Rheumatoid factor is negative. SOUMYA profile is negative. ASSESSMENT: 1. Bilateral pulmonary embolism. 2. Noninsulin-dependent diabetes. 3. History of weight loss. 4. Gastritis. 5. Biatrial enlargement. 6. Severe tricuspid regurgitation, that could be because of bilateral pulmonary embolism. 7. History of acute on chronic deep venous thrombosis. PLAN: The patient is being discharge home on Coumadin 3 mg daily and we get CT scan of the head, discontinue her telemetry. The patient is suppose to see me and also convinced her to check her PT and INR. We will follow up this patient in office. Emily Serrato MD
[2019-02-18 20:28] LABS: B2 GLYCOPROTEIN I AB(IGA) <9 SAU (<=20); B2 GLYCOPROTEIN I AB(IGG) <9 SGU (<=20); B2 GLYCOPROTEIN I AB(IGM) <9 SMU (<=20)
[2019-02-18 21:53] LABS: CARDIOLIPIN AB (IGA) <11 APL (<=11); CARDIOLIPIN AB (IGG) <14 GPL (<=14); CARDIOLIPIN AB (IGM) <12 MPL (<=12)
[2019-02-18 22:48] LABS: PHOSPHATIDYLSERINE AB IGA <20 U/mL (<20); PHOSPHATIDYLSERINE AB IGG <10 U/mL (<10); PHOSPHATIDYLSERINE AB IGM <25 U/mL (<25)
== END 2019-02-17 19:29 | disposition home or self-care (01) | DRG 176 ==
LOC: ED 10:33 → ERH 11:55 → 2RSO 21:33 → ERH 21:36 → 2RSO 22:26
PROVIDERS: ADMIT Internal Medicine; ATTEND Internal Medicine
DX: I26.99 Other pulmonary embolism without acute cor pulmonale (principal); I82.411 Acute embolism and thrombosis of right femoral vein; I82.431 Acute embolism and thrombosis of right popliteal vein; E87.6 Hypokalemia; D64.9 Anemia, unspecified; E11.9 Type 2 diabetes mellitus without complications; R63.4 Abnormal weight loss; R53.83 Other fatigue; R63.0 Anorexia; I10 Essential (primary) hypertension; F41.9 Anxiety disorder, unspecified; K44.9 Diaphragmatic hernia without obstruction or gangrene; K31.9 Disease of stomach and duodenum, unspecified; R62.7 Adult failure to thrive; F03.90 Unspecified dementia, unspecified severity, without behavioral disturbance, psychotic disturbance, mood disturbance, and anxiety; I25.10 Atherosclerotic heart disease of native coronary artery without angina pectoris; I27.20 Pulmonary hypertension, unspecified; I07.1 Rheumatic tricuspid insufficiency; K29.50 Unspecified chronic gastritis without bleeding; I25.2 Old myocardial infarction; K21.9 Gastro-esophageal reflux disease without esophagitis; M19.90 Unspecified osteoarthritis, unspecified site; F32.89 Other specified depressive episodes; Z79.82 Long term (current) use of aspirin; Z79.84 Long term (current) use of oral hypoglycemic drugs; Z79.899 Other long term (current) drug therapy; Z87.11 Personal history of peptic ulcer disease; Z95.5 Presence of coronary angioplasty implant and graft